=== PATIENT | male | born 1960 | race Caucasian/White ===

== ENCOUNTER 2022-12-12 07:48 | Emergency (ER) | payer MEDICAID ==
[~2022-12-12] VITALS: Ht 175.3 cm; Wt 61.2 kg
[2022-12-12 07:48] VITALS: BP_SYST 109; PULSE 78; RESP 19; TEMP 96.8; O2SAT 97
[2022-12-12] MEDS ORDERED: ACETAMINOPHEN 500 MG TABLET PO ONE (08:30)
[2022-12-12] MEDS ORDERED: KETOROLAC TROMETHAMINE 30 MG VIAL IM ONE (08:30)
[2022-12-12] MEDS ORDERED: LIDOCAINE PATCH 5% 1 EA TP ONE (08:30)
[2022-12-12 09:34] LABS: BLOOD, URINE NEGATIVE (NEGATIVE); CLARITY/URINE CLEAR (CLEAR); COLOR,URINE YELLOW (YELLOW); GLUCOSE,URINE NEGATIVE (NEGATIVE); KETONES,URINE TRACE (NEGATIVE); LEUKOCYTE ESTERASE ,URINE NEGATIVE (NEGATIVE); NITRITE, URINE NEGATIVE (NEGATIVE); PH,URINE 5.5 (5.0-8.0); PROTEIN URINE NEGATIVE (NEGATIVE)
[2022-12-12 09:50] LABS: BILIRUBIN,URINE 1+ (NEGATIVE)
[2022-12-12] MEDS ORDERED: ACET-2634 PO ×3 (10:15→10:20)
[2022-12-12] MEDS ORDERED: CYCL10TA24 PO ×3 (10:15→10:20)
[2022-12-12] MEDS ORDERED: LIDO1ADH77 TP ×3 (10:15→10:20)
[2022-12-12] MEDS ORDERED: IBUP-1969 PO ×3 (10:15→10:20)
[2022-12-12 10:25] VITALS: BP_SYST 109; PULSE 78; RESP 19; TEMP 96.8; O2SAT 97
== END 2022-12-12 10:23 | disposition home or self-care (01) ==
LOC: SED 07:48
DX: G89.29 Other chronic pain (principal); M54.50 Low back pain, unspecified; Z79.899 Other long term (current) drug therapy
CPT/HCPCS: 99283; 81003; J1885

== ENCOUNTER 2023-05-05 12:34 | Emergency (ER) | payer MEDICAID ==
[~2023-05-05] VITALS: Ht 172.7 cm; Wt 54.4 kg
[~2023-05-05 12:34] MED LIST: ACET-2634 PO; CYCL10TA24 PO; IBUP-1969 PO; LIDO1ADH77 TP
[2023-05-05 12:35] VITALS: BP_SYST 136; PULSE 74; RESP 18; TEMP 98.9; O2SAT 98
== END 2023-05-05 15:10 | disposition left against medical advice (07) ==
LOC: SED 12:34
DX: M54.50 Low back pain, unspecified (principal); Z53.21 Procedure and treatment not carried out due to patient leaving prior to being seen by health care provider
CPT/HCPCS: 99281

== ENCOUNTER 2023-10-01 07:06 | Emergency (ER) | payer MEDICAID ==
[~2023-10-01] VITALS: Ht 172.7 cm; Wt 59.0 kg
[2023-10-01 07:16] VITALS: BP_SYST 111; PULSE 67; RESP 16; TEMP 98.2; O2SAT 96
[2023-10-01] MEDS ORDERED: NAPR-688 PO (08:12)
[2023-10-01] MEDS ORDERED: TRAM50TA2 PO (08:12)
[2023-10-01 08:30] VITALS: BP_SYST 119; PULSE 76; RESP 16; TEMP 98.2; O2SAT 96
== END 2023-10-01 08:33 | disposition home or self-care (01) ==
LOC: SED 07:06
DX: M25.561 Pain in right knee (principal); Z79.899 Other long term (current) drug therapy; Z79.2 Long term (current) use of antibiotics
CPT/HCPCS: 73564; 99283

== ENCOUNTER 2023-12-03 10:58 | Emergency (ER) | payer MEDICAID ==
[~2023-12-03] VITALS: Ht 172.7 cm; Wt 53.1 kg
[~2023-12-03 10:58] MED LIST changes: +NAPR-688 PO; +TRAM50TA2 PO
[2023-12-03 11:13] VITALS: BP_SYST 130; PULSE 68; RESP 18; TEMP 98.2; O2SAT 97
[2023-12-03] MEDS ORDERED: CYCL10TA24 PO (11:40)
[2023-12-03 11:54] VITALS: BP_SYST 130; PULSE 68; RESP 18; TEMP 98.2; O2SAT 97
== END 2023-12-03 11:53 | disposition home or self-care (01) ==
LOC: SED 10:58
DX: M17.0 Bilateral primary osteoarthritis of knee (principal); M79.7 Fibromyalgia; M54.50 Low back pain, unspecified; G89.29 Other chronic pain; Z79.899 Other long term (current) drug therapy; Z79.2 Long term (current) use of antibiotics
CPT/HCPCS: 99283